=== PATIENT | female | born 1990 | race African-American/Black ===

== ENCOUNTER 2016-07-19 08:24 | Emergency (ER) | payer SELFPAY ==
[2016-07-19 08:29] VITALS: BP 142/94
--- NOTE | 2016-07-19 09:34 | ER Document Report ---
ED ENT - General Chief Complaint: Sore Throat Stated Complaint: THROAT PAIN Mode of Arrival: Ambulatory Information source: Patient TRAVEL OUTSIDE OF THE [place] IN LAST 30 DAYS: No - HPI Onset: Other - 3 days Onset/Duration: Gradual Quality of pain: Achy Associated symptoms: Congestion, Cough, Ear pain, Runny nose, Sinus drainage, Sore throat. denies: Chills, Difficulty swallowing, Drooling, Ear drainage, Ear trauma, Face swelling, Fever, Foreign body, Hearing loss, Neck pain, Nose bleed, Sinus pain Notes: Patient arrives with complaints of runny nose, congestion, sinus congestion, irritation in the throat, and cough for the last 3 days. No fever. Occasional body aches. She denies any nausea, vomiting, diarrhea. No abdominal pain. No difficulty breathing. No rash. No headache, blurred vision, numbness tingling or weakness. The patient denies any immunosuppression. She is not . She denies any other complaints. Her sister is being seen for the same exact complaints. - Related Data Allergies/Adverse Reactions: ciprofloxacin [From Cipro] Allergy (Verified 07/19/16 08:26) ciprofloxacin HCl [From Cipro] Allergy (Verified 07/19/16 08:26) metoclopramide HCl [From Reglan] Allergy (Verified 07/19/16 08:26) morphine [Morphine] Allergy (Verified 07/19/16 08:26) prochlorperazine edisylate [From Compazine] Allergy (Verified 07/19/16 08:26) prochlorperazine maleate [From Compazine] Allergy (Verified 07/19/16 08:26) Past Medical History - Social History Smoking Status: Never Smoker Chew tobacco use (# tins/day): No Frequency of alcohol use: None Drug Abuse: None Family History: CAD, CVA, DM, Hyperlipidemia, Hypertension, Other - dialysis Patient has suicidal ideation: No Patient has homicidal ideation: No Neurological Medical History: Reports: Hx Migraine Endocrine Medical History: Reports: Hx Diabetes Mellitus Type 2 - borderline Renal/ Medical History: Denies: Hx Peritoneal Dialysis Musculoskeltal Medical History: Reports Hx Arthritis Surgical Hx: Negative - Immunizations Immunizations up to date: No Hx Diphtheria, Pertussis, Tetanus Vaccination: No Review of Systems - Review of Systems -: Yes All other systems reviewed and negative Physical Exam - Vital signs Vitals: Temp Pulse Resp BP Pulse Ox 98.3 F 94 20 142/94 H 99 07/19/16 08:28 07/19/16 08:28 07/19/16 08:28 07/19/16 08:28 07/19/16 08:28 - General General appearance: Appears well, Alert - HEENT Head: Normocephalic, Atraumatic Eyes: Normal Conjunctiva: Normal Pupils: PERRL Ears: Normal External canal: Normal Tympanic membrane: Normal Sinus: Normal Nasal: Clear rhinorrhea Mouth/Lips: Normal Mucous membranes: Normal Pharynx: Normal. No: Erythema, Exudate, Peritonsillar abscess, Uvular edema Neck: Normal Notes: No neck stiffness, no meningeal S - Respiratory Respiratory status: No respiratory distress Breath sounds: Normal - Cardiovascular Rhythm: Regular Heart sounds: Normal auscultation Murmur: No - Back Back: Normal, Nontender - Extremities General upper extremity: Normal inspection, Nontender, Normal color, Normal ROM , Normal temperature General lower extremity: Normal inspection, Nontender, Normal color, Normal ROM , Normal temperature, Normal weight bearing. No: Tory's sign - Neurological Neuro grossly intact: Yes Cognition: Normal Orientation: AAOx4 [place] Coma Scale Eye Opening: Spontaneous Ying Coma Scale Verbal: Oriented Ying Coma Scale Motor: Obeys Commands Ying Coma Scale Total: 15 Speech: Normal Motor strength normal: LUE, RUE, LLE, RLE Sensory: Normal - Psychological Associated symptoms: Normal affect, Normal mood - Skin Skin Temperature: Warm Skin Moisture: Dry Skin Color: Normal Course - Re-evaluation Re-evalutation: 07/19/16 09:30 Patient's nontoxic appearing with stable vitals. The patient arrives with URI symptoms for the last 3 days. She is afebrile. Vitals are stable. The patient likely has an upper respiratory infection at this time. At this point the patient will be discharged home with Flonase, NSAIDs, Tessalon. Follow up with not better in one week, sooner for worsening symptoms or any further concerns. The patient's emergency department workup and current diagnosis were explained to the patient and or family. Follow-up instructions were provided. Medications if prescribed were discussed. Instructions for when to return to the emergency department including specific worrisome symptoms were discussed with the patient and/or family. The patient is noted to have elevated blood pressure during today's emergency department visit. The patient was informed of this finding. The patient was instructed that this may be related to pre-hypertension and requires further evaluation with a primary care provider. The patient has no hypertensive symptoms at this time. - Vital Signs Vital signs: Temp Pulse Resp BP Pulse Ox 98.3 F 96 20 142/94 H 99 07/19/16 08:30 07/19/16 08:30 07/19/16 08:30 07/19/16 08:30 07/19/16 08:30 Discharge - Discharge Clinical Impression: Upper respiratory infection Qualifiers: URI type: unspecified URI Qualified Code(s): J06.9 - Acute upper respiratory infection, unspecified Condition: Stable Disposition: HOME, SELF-CARE Instructions: Upper Respiratory Illness ([facility]) Additional Instructions: Take medications as prescribed. Follow-up with your doctor if not better in one week, sooner for worsening symptoms, difficulty breathing, or any further concerns. Your blood pressure was elevated during today's visit. Have this rechecked with your doctor. Prescriptions: Benzonatate [Tessalon [place]le 100 mg Capsule] 100 mg PO Q8HP PRN #20 cap PRN Reason: Diclofenac Sodium [Voltaren] 75 mg PO BID #20 tablet. Fluticasone Propionate [Flonase Nasal [place] 50 Mcg/[place] 16 gm] 2 sprays NASL Q12 #1 inhaler Forms: Elevated Blood Pressure, Return to Work
== END 2016-07-19 09:35 | disposition home or self-care (01) ==
LOC: ER 08:24
DX: J06.9 Acute upper respiratory infection, unspecified (principal); J02.9 Acute pharyngitis, unspecified; R09.81 Nasal congestion; R05 Cough; H92.09 Otalgia, unspecified ear; R09.89 Other specified symptoms and signs involving the circulatory and respiratory systems
CPT/HCPCS: 99282

== ENCOUNTER 2016-09-04 11:12 | Emergency (ER) | payer SELFPAY ==
[2016-09-04] MEDS ORDERED: ACETAMINOPHEN 325 MG TABLET PO ONE (11:45)
--- NOTE | 2016-09-04 11:48 | ER Document Report ---
HPI - HPI Patient complains to provider of: ankle pain Pain Level: 3 Context: 25-year-old female presents emergency department complaining of right ankle pain. Patient states that [place] when she tripped in a small hole and rolled her ankle to the outside. She states she has pain on the outside of her ankle on the top of her foot. States it has been difficulty bearing weight and walking on it. Otherwise she denies any issues with range of motion of her toes, no sensory dysfunction. denies Previous injury to this extremity no other medical problems - REPRODUCTIVE Reproductive: DENIES: : - DERM Skin Color: Normal Past Medical History - Social History Smoking Status: Never Smoker Family History: CAD, CVA, DM, Hyperlipidemia, Hypertension, Other - dialysis Patient has suicidal ideation: No Patient has homicidal ideation: No Neurological Medical History: Reports: Hx Migraine Endocrine Medical History: Reports: Hx Diabetes Mellitus Type 2 - borderline Renal/ Medical History: Denies: Hx Peritoneal Dialysis Musculoskeltal Medical History: Reports Hx Arthritis - Immunizations Immunizations up to date: No Hx Diphtheria, Pertussis, Tetanus Vaccination: No Vertical Provider Document - CONSTITUTIONAL Agree With Documented VS: Yes Exam Limitations: No Limitations General Appearance: WD/WN, No Apparent Distress - INFECTION CONTROL TRAVEL OUTSIDE OF THE [place] IN LAST 30 DAYS: No - RESPIRATORY O2 Sat by Pulse Oximetry: 100 - CARDIOVASCULAR Pulses: Normal: Dorsalis pedis Notes: Cap refill less than 2 seconds in all lower extremity digits - MUSCULOSKELETAL/EXTREMETIES Musculoskeletal/Extremeties: MAEW, Tender - Lateral aspect of the right ankle as well as the top of the foot. Positive metatarsal compression for pain, No Edema. negative: Eccymosis - NEURO Level of Consciousness: Awake, Alert, Appropriate Motor/Sensory: No Motor Deficit, No Sensory Deficit - DERM Integumentary: Warm, Dry, No Rash. negative: Laceration Course - Re-evaluation Re-evalutation: 09/04/16 13:31 Lateral malleolus avulsion fracture. Patient placed in the posterior long leg splint and crutches. Follow-up with ortho - Vital Signs Vital signs: Temp Pulse Resp BP Pulse Ox 98.0 F 93 16 123/81 100 09/04/16 11:38 09/04/16 11:38 09/04/16 11:38 09/04/16 11:38 09/04/16 11:38 - Diagnostic Test Radiology reviewed: Image reviewed, Reports reviewed Discharge - Discharge Clinical Impression: Avulsion fracture of ankle Condition: Good Disposition: HOME, SELF-CARE Instructions: Splint Precautions ([facility]), Use of Crutches ([facility]), Use of Over-The- Counter Ibuprofen ([facility]), Oral Narcotic Medication ([facility]), Ice & Elevation ([facility]) Additional Instructions: Please follow up with ortho in 3-5 days Prescriptions: Ibuprofen [Motrin 800 mg Tablet] 800 mg PO Q8H PRN #30 tab PRN Reason: Oxycodone HCl/Acetaminophen [Percocet 5-325 mg Tablet] 1 - 2 tab PO Q4H PRN #10 tablet PRN Reason: Forms: Special Work Note, Return to Work Referrals: FABIO LOVETT DO [ACTIVE STAFF] - Follow up in 3-5 days [facility] [NO LOCAL MD] - Follow up as needed
[2016-09-04 14:31] VITALS: BP 125/77
== END 2016-09-04 14:20 | disposition home or self-care (01) ==
LOC: ER 11:12
PROC: 2W3LX1Z Immobilization of Right Lower Extremity using Splint (ICD-10-PCS; principal; 2016-09-04)
DX: S82.891A Other fracture of right lower leg, initial encounter for closed fracture (principal); M25.571 Pain in right ankle and joints of right foot; X58.XXXA Exposure to other specified factors, initial encounter
CPT/HCPCS: 99283

== ENCOUNTER 2016-12-21 14:05 | Emergency (ER) | payer SELFPAY ==
--- NOTE | 2016-12-21 14:56 | ER Document Report ---
ED General - General Chief Complaint: Ankle Pain Stated Complaint: RIGHT ANKLE PAIN Time Seen by Provider: 12/21/16 14:44 TRAVEL OUTSIDE OF THE [place] IN LAST 30 DAYS: No - HPI Patient complains to provider of: Right ankle pain Notes: Patient coming in for right ankle pain ongoing for greater than a month. Patient states she was recently seen approximate 1 month ago and had an x-ray performed showing fracture of the ankle however never followed up with orthopedic and that she does not have insurance. Patient states continues to have pain on the ankle and on the dorsum of the foot. Patient denies any fevers chills nausea vomiting denies any other injuries. Patient currently is in no splinting apparatus - Related Data Allergies/Adverse Reactions: ciprofloxacin [From Cipro] Allergy (Verified 09/04/16 11:37) ciprofloxacin HCl [From Cipro] Allergy (Verified 09/04/16 11:37) metoclopramide HCl [From Reglan] Allergy (Verified 09/04/16 11:37) morphine [Morphine] Allergy (Verified 09/04/16 11:37) prochlorperazine edisylate [From Compazine] Allergy (Verified 09/04/16 11:37) prochlorperazine maleate [From Compazine] Allergy (Verified 09/04/16 11:37) Past Medical History - Social History Smoking Status: Unknown if Ever Smoked Family History: CAD, CVA, DM, Hyperlipidemia, Hypertension, Other - dialysis Neurological Medical History: Reports: Hx Migraine Endocrine Medical History: Reports: Hx Diabetes Mellitus Type 2 - borderline Renal/ Medical History: Denies: Hx Peritoneal Dialysis Musculoskeltal Medical History: Reports Hx Arthritis - Immunizations Immunizations up to date: No Hx Diphtheria, Pertussis, Tetanus Vaccination: No Review of Systems - Review of Systems Constitutional: No symptoms reported EENT: No symptoms reported Cardiovascular: No symptoms reported Respiratory: No symptoms reported Gastrointestinal: No symptoms reported Genitourinary: No symptoms reported Female Genitourinary: No symptoms reported Musculoskeletal: Other - Ankle pain Skin: No symptoms reported Hematologic/Lymphatic: No symptoms reported Neurological/Psychological: No symptoms reported Physical Exam - Vital signs Vitals: Temp Pulse Resp BP Pulse Ox 98.8 F 100 18 147/98 H 99 12/21/16 14:11 12/21/16 14:11 12/21/16 14:11 12/21/16 14:11 12/21/16 14:11 Interpretation: Normal - General General appearance: Appears well, Alert - HEENT Head: Normocephalic, Atraumatic Eyes: Normal Pupils: PERRL - Respiratory Respiratory status: No respiratory distress Chest status: Nontender Breath sounds: Normal Chest palpation: Normal - Cardiovascular Rhythm: Regular Heart sounds: Normal auscultation Murmur: No - Abdominal Inspection: Normal Distension: No distension Bowel sounds: Normal Tenderness: Nontender Organomegaly: No organomegaly - Back Back: Normal, Nontender - Extremities General upper extremity: Normal inspection, Nontender, Normal color, Normal ROM , Normal temperature General lower extremity: Normal inspection, Tender, Normal color, Normal ROM, Normal temperature, Normal weight bearing, Other - Right ankle examination shows tenderness to palpation of the dorsum of the foot lateral medial malleolus. - Neurological Neuro grossly intact: Yes Cognition: Normal Orientation: AAOx4 Ying Coma Scale Eye Opening: Spontaneous Ying Coma Scale Verbal: Oriented [place] Coma Scale Motor: Obeys Commands [place] Coma Scale Total: 15 Speech: Normal Motor strength normal: LUE, RUE, LLE, RLE Sensory: Normal - Psychological Associated symptoms: Normal affect, Normal mood - Skin Skin Temperature: Warm Skin Moisture: Dry Skin Color: Normal Course - Re-evaluation Re-evalutation: 12/21/16 22:28 Patient still has a avulsion fracture present discussed with our bilingual social worker team will try to find patient follow-up. Will discharge patient home with Anurag wrap. - Vital Signs Vital signs: Temp Pulse Resp BP Pulse Ox 98.7 F 62 16 125/77 96 12/21/16 16:18 12/21/16 16:18 12/21/16 16:18 12/21/16 16:18 12/21/16 16:18 Discharge - Discharge Clinical Impression: Avulsion fracture of lateral malleolus Qualifiers: Encounter type: initial encounter Fracture type: closed Laterality: right Qualified Code(s): S82.61XA - Displaced fracture of lateral malleolus of right fibula, initial encounter for closed fracture Condition: Good Disposition: HOME, SELF-CARE Instructions: Avulsion Fracture of the Ankle ([facility]) Additional Instructions: Your x-ray still shows an avulsion fracture. There is a piece of bone on the outside of your ankle that is still displaced and has not healed to the main part of the bone. This may continue for the rest of her life which can cause some chronic pain issues and chronic arthritis. This time I will suggest we place you in a Anurag wrap to support the ankle I will have our bilingual social worker contact you for possible follow-up. Take Tylenol Motrin for pain control return to the ER symptoms worsen. Prescriptions: Ibuprofen [Motrin 600 Mg Tablet] 600 mg PO TID #30 tablet Forms: Return to Work
--- NOTE | 2016-12-21 15:19 | RADIOLOGY REPORT (SQ) ---
EXAM DESCRIPTION: ANKLE RIGHT COMPLETE COMPLETED DATE/TIME: 12/21/2016 3:00 pm REASON FOR STUDY: hx of fx.. continued pain no fu with ortho for 1m COMPARISON: 04/22/2013 NUMBER OF VIEWS: Three views. TECHNIQUE: AP, lateral, and oblique radiographic images acquired of the right ankle. LIMITATIONS: None. FINDINGS: MINERALIZATION: Normal. BONES: There is a small fragment of bone adjacent to tip of the lateral malleolus. JOINTS: No effusions. SOFT TISSUES: Mild soft tissue swelling. OTHER: No other significant finding. IMPRESSION: Cannot exclude a minimal avulsion involving tip of the lateral malleolus. Correlate cli nically. TECHNICAL DOCUMENTATION: JOB ID: [id number] [employer]- All Rights Reserved
[2016-12-21 17:40] VITALS: BP 125/77
== END 2016-12-21 16:18 | disposition home or self-care (01) ==
LOC: ER 14:05
DX: S82.61XA Displaced fracture of lateral malleolus of right fibula, initial encounter for closed fracture (principal); M25.571 Pain in right ankle and joints of right foot; X58.XXXA Exposure to other specified factors, initial encounter
CPT/HCPCS: 99283

== ENCOUNTER 2017-03-01 13:29 | Emergency (ER) | payer SELFPAY ==
[2017-03-01 14:33] LABS: ABSOLUTE BASOPHILS # (AUTO) 0.1 10^3/uL (0.0-0.2); ABSOLUTE EOSINOPHILS # (AUTO) 0.1 10^3/uL (0.0-0.6); ABSOLUTE LYMPHOCYTES (AUTO) 3.5 10^3/uL (0.5-4.7); ABSOLUTE MONOCYTES (AUTO) 0.7 10^3/uL (0.1-1.4); ABSOLUTE NEUT (AUTO) 8.2 10^3/uL (1.7-8.2); BASOPHILS % (AUTO) 0.4 % (0-2); HEMATOCRIT 37.7 % (36.0-47.0); HEMOGLOBIN 12.2 g/dL (12.0-15.5); HGB HCT DIFFERENCE -1.1; MEAN CORPUSCULAR HEMOGLOBIN 27.1 pg (27.0-33.4); MEAN CORPUSCULAR HGB CONC 32.4 g/dL (32.0-36.0); MEAN CORPUSCULAR VOLUME 84 fl (80-97); MONOCYTES % (AUTO) 5.6 % (3-13); RED CELL DISTRIBUTION WIDTH 14.7 % (11.5-14.0); WHITE BLOOD COUNT 12.7 10^3/uL (4.0-10.5)
[2017-03-01 14:59] LABS: ALANINE AMINOTRANSFERASE 24 U/L (9-52); ALKALINE PHOSPHATASE 62 U/L (38-126); ANION GAP 11 (5-19); ASPARTATE AMINO TRANSFERASE 11 U/L (14-36); BILIRUBIN,DIRECT 0.3 mg/dL (0.0-0.4); BILIRUBIN,TOTAL 0.4 mg/dL (0.2-1.3); BLOOD UREA NITROGEN 8 mg/dL (7-20); CALCIUM 9.9 mg/dL (8.4-10.2); CARBON DIOXIDE 25 mmol/L (22-30); CHLORIDE 104 mmol/L (98-107); CREATININE RESULT 0.67 mg/dL (0.52-1.25); GLUCOSE 84 mg/dL (75-110); SODIUM 140.3 mmol/L (137-145)
[2017-03-01 15:11] LABS: APPEARANCE,URINE SLIGHTLY-CLOUDY; BILIRUBIN,URINE NEGATIVE (NEGATIVE); GLUCOSE, URINE NEGATIVE (NEGATIVE); KETONES,URINE NEGATIVE (NEGATIVE); LEUKOCYTE ESTERASE,URINE TRACE (NEGATIVE); NITRITE,URINE NEGATIVE (NEGATIVE); PROTEIN,URINE 30 mg/dL (NEGATIVE); URINE SPECIFIC GRAVITY 1.028; UROBILINOGEN,URINE NEGATIVE mg/dL (<2.0)
--- NOTE | 2017-03-01 17:44 | RADIOLOGY REPORT (SQ) ---
EXAM DESCRIPTION: U/S OB TRANSVAGINAL W/O DOP COMPLETED DATE/TIME: 03/01/2017 5:31 pm REASON FOR STUDY: preg/pain COMPARISON: None. TECHNIQUE: Transvaginal static and realtime grayscale images acquired of the pelvis. Additional edith cted spectral and color Doppler images recorded. All images stored on PACs. bHCG: Not available LIMITATIONS: None. FINDINGS: FETUS: Living intrauterine . EGA: 6 weeks 3 days ANDRES: 10/22/2017 FHR: 127 beats per minute. SUBCHORIONIC BLEED: No SIZE OF BLEED: Not applicable. UTERUS: No masses. No anomalies. CERVICAL LENGTH: 1.9 cm Closed. RIGHT ADNEXA: Right ovary was not visualized. No adnexal free fluid. No adnexal masses. LEFT ADNEXA: Normal ovary with normal vascular flow. No adnexal free fluid. No adnexal masses. FREE FLUID: None. OTHER: No other significant finding. IMPRESSION: LIVING INTRAUTERINE . EGA 6 weeks 3 days Trimester of : First - 0 to 13 weeks. TECHNICAL DOCUMENTATION: JOB ID: [id number] [email or web address]- All Rights Reserved
--- NOTE | 2017-03-01 18:15 | ER Document Report ---
ED General - General Chief Complaint: Nausea/Vomiting/Diarrhea Stated Complaint: STOMACH PAIN Time Seen by Provider: 03/01/17 13:56 Mode of Arrival: Ambulatory Information source: Patient Notes: Patient states she has had bilateral lower quadrant abdominal pain radiating to her back. It is moderate. And constant. Nothing makes it better or worse. Also states she has been nauseous and unable to hold down food or liquids. States that she is concerned she may be . The pain is crampy in nature TRAVEL OUTSIDE OF THE [place] IN LAST 30 DAYS: No - Related Data Allergies/Adverse Reactions: ciprofloxacin [From Cipro] Allergy (Verified 03/01/17 13:31) ciprofloxacin HCl [From Cipro] Allergy (Verified 03/01/17 13:31) metoclopramide HCl [From Reglan] Allergy (Verified 03/01/17 13:31) morphine [Morphine] Allergy (Verified 03/01/17 13:31) prochlorperazine edisylate [From Compazine] Allergy (Verified 03/01/17 13:31) prochlorperazine maleate [From Compazine] Allergy (Verified 03/01/17 13:31) Home Medications: Current Home Medications No Home Medications 03/01/17 [History] Past Medical History - General Information source: Patient - Social History Smoking Status: Never Smoker Chew tobacco use (# tins/day): No Frequency of alcohol use: None Drug Abuse: None Family History: CAD, CVA, DM, Hyperlipidemia, Hypertension, Other - dialysis Patient has suicidal ideation: No Patient has homicidal ideation: No Neurological Medical History: Reports: Hx Migraine Endocrine Medical History: Reports: Hx Diabetes Mellitus Type 2 - borderline Renal/ Medical History: Denies: Hx Peritoneal Dialysis Musculoskeltal Medical History: Reports Hx Arthritis - Immunizations Immunizations up to date: No Hx Diphtheria, Pertussis, Tetanus Vaccination: No Review of Systems - Review of Systems Constitutional: denies: Chills, Fever Cardiovascular: denies: Chest pain, Palpitations Respiratory: denies: Cough, Short of breath -: Yes All other systems reviewed and negative Physical Exam - Vital signs Vitals: Temp Pulse Resp BP Pulse Ox 98.5 F 92 16 137/79 H 98 03/01/17 13:31 03/01/17 13:31 03/01/17 13:31 03/01/17 13:31 03/01/17 13:31 Interpretation: Hypertensive - General General appearance: Appears well, Alert - HEENT Head: Normocephalic, Atraumatic Eyes: Normal Pupils: PERRL - Respiratory Respiratory status: No respiratory distress Chest status: Nontender Breath sounds: Normal Chest palpation: Normal - Cardiovascular Rhythm: Regular Heart sounds: Normal auscultation Murmur: No - Abdominal Inspection: Normal Distension: No distension Bowel sounds: Normal Tenderness: Nontender Organomegaly: No organomegaly - Back Back: Normal, Nontender - Extremities General upper extremity: Normal inspection, Nontender, Normal color, Normal ROM , Normal temperature General lower extremity: Normal inspection, Nontender, Normal color, Normal ROM , Normal temperature, Normal weight bearing. No: Tory's sign - Neurological Neuro grossly intact: Yes Cognition: Normal Orientation: AAOx4 [place] Coma Scale Eye Opening: Spontaneous [place] Coma Scale Verbal: Oriented [place] Coma Scale Motor: Obeys Commands Ying Coma Scale Total: 15 Speech: Normal Motor strength normal: LUE, RUE, LLE, RLE Sensory: Normal - Psychological Associated symptoms: Normal affect, Normal mood - Skin Skin Temperature: Warm Skin Moisture: Dry Skin Color: Normal Course - Vital Signs Vital signs: Temp Pulse Resp BP Pulse Ox 98.5 F 92 16 137/79 H 98 03/01/17 13:31 03/01/17 13:31 03/01/17 13:31 03/01/17 13:31 03/01/17 13:31 - Laboratory Result Diagrams: 03/01/17 14:15 03/01/17 14:15 Laboratory results interpreted by me: 03/01/17 03/01/17 03/01/17 14:15 14:15 14:15 WBC 12.7 H RDW 14.7 H AST 11 L Beta HCG, Quant Urine Protein 30 H Ur Leukocyte Esterase TRACE H Urine HCG, Qual POSITIVE H 03/01/17 14:15 WBC RDW AST Beta HCG, Quant 46366.00 H Urine Protein Ur Leukocyte Esterase Urine HCG, Qual - Diagnostic Test Radiology reviewed: Image reviewed, Reports reviewed - Patient's ultrasound shows a live IUP with a normal heart rate. Discharge - Discharge Clinical Impression: Abdominal pain affecting , Hyperemesis gravidarum Condition: Stable Disposition: HOME, SELF-CARE Instructions: Abdominal Pain ([facility]), Vomiting ([facility]) Additional Instructions: [facility] as [facility] to arrange follow-up Forms: Elevated Blood Pressure, Return to Work Referrals: PAULIE GARZA MD [ACTIVE STAFF] - Follow up in 3-5 days
[2017-03-01 18:34] VITALS: BP 127/67
== END 2017-03-01 18:30 | disposition home or self-care (01) ==
LOC: ER 13:29
DX: O21.0 Mild hyperemesis gravidarum (principal); R10.9 Unspecified abdominal pain; R11.2 Nausea with vomiting, unspecified; R19.7 Diarrhea, unspecified; M54.9 Dorsalgia, unspecified; Z3A.01 Less than 8 weeks gestation of pregnancy
CPT/HCPCS: 36415; 76817; 80053; 81001; 81025; 84702; 85025; 99284

== ENCOUNTER → 2017-03-29 | Outpatient (CLI) | payer SELFPAY ==
--- NOTE | 2017-03-29 16:37 | RADIOLOGY REPORT (SQ) ---
EXAM DESCRIPTION: U/S [id number] TRNABD 1GES W/ODOP COMPLETED DATE/TIME: 03/29/2017 4:17 pm REASON FOR STUDY: ENCOUNTER FOR SUPERVISON OF OTHER NORMAL , FIRST TRIMESTER Z34.01 ENCNTR FOR SUPRVSN OF NORMAL FIRST PREG, FIRST TRIMES COMPARISON: 03/01/2017 TECHNIQUE: Transabdominal static and realtime grayscale images acquired of the pelvis. Additional se lected spectral and color Doppler images recorded. All images stored on PACs. bHCG: Not applicable. LIMITATIONS: None. FINDINGS: FETUS: Living intrauterine . EGA: 10 weeks 4 days ANDRES: 10/21/2017 FHR: 165 beats per minute. SUBCHORIONIC BLEED: No SIZE OF BLEED: Not applicable. UTERUS: No masses. No anomalies. CERVICAL LENGTH: 1.9 cm Closed. RIGHT ADNEXA: Ovary not seen. Solid masslike density measuring 6.6 x 5.5 x 5.6 cm. On 1 image, it a ppears that this may represent pedunculated fibroid. No adnexal free fluid. No adnexal masses. LEFT ADNEXA: Ovary not seen. No adnexal free fluid. No adnexal masses. FREE FLUID: None. OTHER: No other significant finding. IMPRESSION: 1. LIVING INTRAUTERINE . EGA 10 weeks 4 days. 2. Possible pedunculated uterine fibroid in the right adnexa. Trimester of : First - 0 to 13 weeks. TECHNICAL DOCUMENTATION: JOB ID: [id number] [email or web address]- All Rights Reserved
== END ==
LOC: RAD 15:13
PROVIDERS: ATTEND Nurse Practitioner Women's Health
DX: Z34.01 Encounter for supervision of normal first pregnancy, first trimester (principal)
CPT/HCPCS: 76801

== ENCOUNTER 2017-05-29 16:54 | Emergency (ER) | payer MEDICAID ==
[2017-05-29 19:13] VITALS: BP 126/64
[2017-05-29] MEDS ORDERED: ACETAMINOPHEN 325 MG TABLET PO ONE (19:13)
--- NOTE | 2017-05-29 19:13 | ER Document Report ---
HPI - HPI Pain Level: 4 Context: Patient is a 19 week 26-year-old female who presents emergency department complaining of headache. Patient states that she has had a headache approximately every day for the past week and a half. She states that she has been taking Tylenol which has not made any significant improvement in her headache. She states it is a pressure behind her left eye. She admits she recently stopped drinking Mountain Dew 2 weeks ago. She states that she was previously drinking approximately 5 cans or bottles of Mountain Dew a day and stopped abruptly. She states that as soon as she quit drinking caffeine that her headaches started. She also admits to some tension in her left neck that improves with massage. Otherwise she denies any focal neurological deficits, weakness, altered mental status, confusion, dizziness, vomiting. States that she does have a history of headaches that resolve after dose of Motrin but she has not been able to take that given her status. - NEURO Neurology: REPORTS: Headache - X 2 weeks - REPRODUCTIVE Reproductive: DENIES: : Past Medical History - Social History Smoking Status: Never Smoker Family History: CAD, CVA, DM, Hyperlipidemia, Hypertension, Other - dialysis Patient has suicidal ideation: No Patient has homicidal ideation: No Neurological Medical History: Reports: Hx Migraine Endocrine Medical History: Reports: Hx Diabetes Mellitus Type 2 - borderline Renal/ Medical History: Denies: Hx Peritoneal Dialysis Musculoskeltal Medical History: Reports Hx Arthritis - Immunizations Immunizations up to date: No Hx Diphtheria, Pertussis, Tetanus Vaccination: No Vertical Provider Document - CONSTITUTIONAL Agree With Documented VS: Yes Notes: PHYSICAL EXAM GENERAL: Alert, interacts well. HEAD: Normocephalic, atraumatic. EYES: Pupils equal, round, and reactive to light. Extraocular movements intact. ENT: Oral mucosa moist, tongue midline. NECK: Full range of motion. Supple. Trachea midline. LUNGS: Clear to auscultation bilaterally, no wheezes, rales, or rhonchi. No respiratory distress. HEART: Regular rate and rhythm. No murmurs, gallops, or rubs. ABDOMEN: Soft, nondistended, nontender. No guarding, rebound, or rigidity.. Bowel sounds present in all 4 quadrants. EXTREMITIES: Tenderness of the left trapezius to palpation. Moves all 4 extremities spontaneously. No edema, radial and dorsalis pedis pulses 2/4 bilaterally. No cyanosis. NEUROLOGICAL: Alert and oriented x4. Face symmetric. Tongue protrudes midline. Extraocular motions intact. Pupils are 2 mm and equally reactive. Normal speech, normal gait. 5 out of 5 strength in both the distal and proximal upper and lower extremities bilaterally. Sensation is grossly intact throughout. PSYCH: Normal affect, normal mood. SKIN: Warm, dry, normal turgor. No rashes or lesions noted. - INFECTION CONTROL TRAVEL OUTSIDE OF THE [place] IN LAST 30 DAYS: No - RESPIRATORY O2 Sat by Pulse Oximetry: 100 Course - Re-evaluation Re-evalutation: 05/29/17 19:08 Patient is a 26-year-old female who is hemodynamically stable, no acute distress and afebrile. Presentation is consistent with tension type headache with underlying caffeine withdrawal. Patient does not have any focal neurologic deficits, nuchal rigidity, vital signs are within normal limits no papilledema. Patient is otherwise no acute distress and hemodynamically stable. Low index for suspicion of acute subarachnoid hemorrhage, meningitis or mass. Low suspicion for acute life-threatening etiology with intact neuro exam therefore no additional imaging or laboratory testing is indicated. Will discharge patient home with strict follow-up with PCP for blood pressure check with her scheduled follow-up appointment on the . - Vital Signs Vital signs: Temp Pulse Resp BP Pulse Ox 99.1 F 96 16 129/77 H 100 05/29/17 17:53 05/29/17 17:53 05/29/17 17:53 05/29/17 17:53 05/29/17 17:53 Discharge - Discharge Clinical Impression: Headache Qualifiers: Headache type: other headache syndrome Qualified Code(s): G44.89 - Other headache syndrome Condition: Good Disposition: HOME, SELF-CARE Additional Instructions: Your headache today is consistent with the fact that you recently stopped drinking caffeine. You also have signs of a tension headache with the irritation of your left shoulder. PLease start taking 400mg of magnesium and follow up with the health department on . HEADACHE: The physician does not feel that the headache you are experiencing has a serious underlying cause. Most headaches are due to emotional stress, with resultant muscle tension (tension headache). Occasionally, headaches are secondary to changes in the blood vessels of the scalp (vascular headache and migraine headache). Sometimes, a headache is the first symptom of another developing illness, such as a viral infection. You have no evidence of stroke, bleeding, meningitis, or other serious cause of your headache. The treatment of headaches varies with the severity and cause of the pain. Not all headaches need pain shots. In fact, there is evidence that using narcotics for headaches may make them worse in the long run. The physician will determine the therapy that's in your best interest. If you develop a fever, if the headache is different from any you've previously experienced, or if the headache progressively worsens, then call your physician at once or go to the emergency room. FOLLOW-UP CARE: If you have been referred to a physician for follow-up care, call the physician s office for an appointment as you were instructed or within the next two days. If you experience worsening or a significant change in your symptoms, notify the physician immediately or return to the Emergency Department at any time for re-evaluation. [facility] - Follow up in 3-5 days
== END 2017-05-29 19:34 | disposition home or self-care (01) ==
LOC: ER 16:54
DX: G44.89 Other headache syndrome (principal); M54.2 Cervicalgia
CPT/HCPCS: 99283; J3490

== ENCOUNTER 2017-09-26 14:29 | Outpatient (CLI) | payer MEDICAID | END 2017-09-26 15:21 | disposition home or self-care (01) | LOC: LC 14:29 | PROVIDERS: ATTEND Obstetrics & Gynecology | PROC: 4A1HXCZ Monitoring of Products of Conception, Cardiac Rate, External Approach (ICD-10-PCS; principal; 2017-09-26) | DX: Z34.93 Encounter for supervision of normal pregnancy, unspecified, third trimester (principal) | CPT/HCPCS: 59025 ==

== ENCOUNTER 2017-10-05 20:38 | Inpatient (IN) | payer MEDICAID ==
[2017-10-05] MEDS ORDERED: RINGERS SOLUTION,LACTATED 300 ML IV ONE (21:13)
[2017-10-05] MEDS ORDERED: DINOPROSTONE 10 MG VAGINAL INSERT.SR PV PRN (21:13)
[2017-10-05] MEDS ORDERED: RINGERS SOLUTION,LACTATED 1,000 ML IV PRN (21:13)
[2017-10-05] MEDS ORDERED: DINOPROSTONE 10 MG VAGINAL INSERT.SR ONE (21:17)
[2017-10-05 21:39] LABS: ABSOLUTE EOSINOPHILS # (AUTO) 0.1 10^3/uL (0.0-0.6); ABSOLUTE LYMPHOCYTES (AUTO) 3.1 10^3/uL (0.5-4.7); ABSOLUTE MONOCYTES (AUTO) 0.6 10^3/uL (0.1-1.4); BASOPHILS % (AUTO) 0.3 % (0-2); EOSINOPHILS % (AUTO) 0.7 % (0-6); HEMATOCRIT 34.6 % (36.0-47.0); HEMOGLOBIN 11.1 g/dL (12.0-15.5); LYMPHOCYTES % (AUTO) 26.4 % (13-45); MEAN CORPUSCULAR HEMOGLOBIN 27.6 pg (27.0-33.4); MEAN CORPUSCULAR HGB CONC 32.1 g/dL (32.0-36.0); MEAN CORPUSCULAR VOLUME 86 fl (80-97); MONOCYTES % (AUTO) 5.3 % (3-13); PLATELET COUNT 226 10^3/uL (150-450); RED BLOOD COUNT 4.02 10^6/uL (3.72-5.28); SEGMENTED NEUTROPHILS % (AUTO) 67.3 % (42-78); TOTAL CELLS COUNTED % (AUTO) 100 %; WHITE BLOOD COUNT 11.8 10^3/uL (4.0-10.5)
[2017-10-05 21:41] LABS: APPEARANCE,URINE CLOUDY; BILIRUBIN,URINE NEGATIVE (NEGATIVE); COLOR,URINE YELLOW; GLUCOSE, URINE 50 mg/dL (NEGATIVE); KETONES,URINE NEGATIVE (NEGATIVE); LEUKOCYTE ESTERASE,URINE LARGE (NEGATIVE); NITRITE,URINE NEGATIVE (NEGATIVE); PROTEIN,URINE 30 mg/dL (NEGATIVE); URINE SPECIFIC GRAVITY 1.028
[2017-10-05 21:58] LABS: URINE AMPHETAMINES SCREEN NEGATIVE; URINE BARBITURATES SCREEN NEGATIVE; URINE BENZODIAZEPINES SCREEN NEGATIVE; URINE COCAINE SCREEN NEGATIVE; URINE MARIJUANA (THC) SCREEN NEGATIVE; URINE METHADONE SCREEN NEGATIVE; URINE PHENCYCLIDINE SCREEN NEGATIVE
[2017-10-06] MEDS ORDERED: NALBUPHINE HCL INJ 10 MG/1 ML AMPULE INJ ONE (03:58)
[2017-10-06] MEDS ORDERED: NALBUPHINE HCL INJ 10 MG/1 ML AMPULE ONE (04:01)
[2017-10-06] MEDS ORDERED: PENICILLIN G-K 5 MILLION UNIT VIAL ONE ×2 (04:40→11:32)
[2017-10-06] MEDS ORDERED: DEXTROSE 5%-LACTATED RINGERS 300 ML IV PRN (09:30)
--- NOTE | 2017-10-06 10:39 | Non Stress Test Report ---
Non Stress Test Datetime Report Generated by CPN: 10/06/2017 10:39 DEMOGRAPHIC EGA NST: 36.2 INDICATION Indication for Study: Diabetes Mellitus; Ordered by Provider MONITORING Monitor Explained: Monitor Explained; Test Explained; Patient Verbalized Understanding Time on Monitor: 09/26/2017 14:55 Time off Monitor: 09/26/2017 15:21 NST Duration: 26 NST INTERVENTIONS NST Interventions: PO Hydration; Reposition Patient Physician Notified NST: H. Leo CNM BABY A: [id number] BABY A Movement : Present Contraction Frequency : irreg FHR Baseline : 145 Accelerations : 15X15 Decelerations : None Variability : Moderate 6-25bpm NST Review: Meets Criteria for Reactive NST NST Review and Verified By : Elvie Camp RNC NST Results: Reactive NST REPORT Report Trigger: Send Report
--- NOTE | 2017-10-06 11:12 | RADIOLOGY REPORT (SQ) ---
EXAM DESCRIPTION: U/S PROFILE W/O STRESS COMPLETED DATE/TIME: 10/06/2017 10:54 am REASON FOR STUDY: please add weight/BPP for 1 x decel of fht COMPARISON: 03/29/2017 TECHNIQUE: Limited gould-scale realtime and static images of the fetus to measure specified parameter s. LIMITATIONS: None. FINDINGS: HEART RATE: 152 beats per minute. CHIRAG: Adequate cm. BREATHING MOVEMENT: 2 points. MOVEMENT: 2 points. POSTURE AND TONE: 0 points. QUALITATIVE CHIRAG: 2 points. OTHER: Estimated body weight 3876 +/-574 g. 93rd percentile. IMPRESSION: BIOPHYSICAL PROFILE: 09/22. Trimester of : Third - 28 weeks to delivery COMMENT: BREATHING MOVEMENTS: 2 POINTS: PRESENT 0 POINTS: ABSENT MOTION: 2 POINTS: PRESENT 0 POINTS: ABSENT TONE: 2 POINTS: PRESENT 0 POINTS: ABSENT AMNIOTIC FLUID VOLUME: 2 POINTS: LARGEST POCKET GREATER THAN 2 CM DEPTH. 0 POINTS: NO POCKET OF 2 CM. TECHNICAL DOCUMENTATION: JOB ID: [id number] [employer]- All Rights Reserved Reading location - IP/workstation name: [email or web address]
[2017-10-06] MEDS ORDERED: OXYTOCIN/NORMAL SALINE 20 UNIT/1,000 ML RTUINJ ONE ×2 (11:32→15:28)
[2017-10-06] MEDS ORDERED: MISOPROSTOL 0.2 MG TABLET ONE (12:17)
[2017-10-06] MEDS ORDERED: LIDOCAINE 1% INJ-PF (10 MG/ML) 30 ML SDV ONE (12:18)
[2017-10-06] MEDS ORDERED: EPHEDRINE SULFATE INJ 50 MG/1 ML AMPULE ONE ×2 (12:18→14:00)
[2017-10-06] MEDS ORDERED: FENTANYL/BUPIVACAINE/NS/PF 300 MCG/150 ML RTUINJ EPI ONE (12:18)
[2017-10-06] MEDS ORDERED: BUPIVACAINE HCL 0.25 % INJ/PF (2.5 MG/1 ML) 30 ML VIAL ONE (12:19)
[2017-10-06] MEDS ORDERED: LIDOCAINE 1.5%/EPINEPHRINE INJ-PF 30 ML SDV ONE (12:25)
[2017-10-06] MEDS ORDERED: FENTANYL CITRATE INJ/PF 100 MCG/2 ML AMPUL ONE ×3 (12:32→14:00)
[2017-10-06] MEDS ORDERED: CEFAZOLIN 1 GM/D5W RTU 2 GM/100 ML RTUPB IV ONE (13:47)
[2017-10-06] MEDS ORDERED: CITRIC ACID/SODIUM CITRATE ORAL SOLN 15 ML UDCUP ONE (13:47)
[2017-10-06] MEDS ORDERED: LIDOCAINE 2% INJ-PF (20 MG/ML) 10 ML AMPUL ONE (13:50)
[2017-10-06] MEDS ORDERED: OXYTOCIN 10 UNIT/ML VIAL ONE (13:59)
[2017-10-06] MEDS ORDERED: MIDAZOLAM 2 MG/2 ML INJ ONE (14:00)
[2017-10-06] MEDS ORDERED: PROPOFOL INJ 200 MG/20 ML VIAL IV ONE (14:00)
--- NOTE | 2017-10-06 15:51 | Admission Physical ---
Datetime Report Generated by CPN: 10/06/2017 15:51 CURRENT ADMISSION Chief Complaint: Scheduled Induction of Labor Indication for Induction: Maternal Diabetes Admit Impression : Term, Intrauterine Admit Plan: Admit to Unit; Initiate Labor Induction Protocol ALLERGIES Medication Allergies: Yes Medication Allergies: prochlorperazine edisylate/feels funny (10/06/2017); prochlorperazine maleate/KS (10/06/2017); metoclopramide HCl/KS (10/06/2017); morphine/KS (10/06/2017); ciprofloxacin/KS (10/06/2017) OBSTETRICAL HISTORY EDC: 10/22/2017 00:00 : 1 Para: 0 Term: 0 : 0 SAB: 0 IAB: 0 Ectopic: 0 Livin Cesareans: 0 VBACs: 0 Multiple Births: 0 Gestational Diabetes: Yes Rh Sensitization: No Incompetent Cervix: No EMMIE: No Infertility: No ART Treatment: No Uterine Anomaly: No IUGR: No Hx Previous C/S: No Macrosomia: Yes Hx Loss/Stillborn: No PIH: No Hx : No Placenta Previa/Abruption: No Depression/PP Depression: No PTL/PROM: No Post Hemorrhage: No Current Procedures: Ultrasound; NST Obstetrical History Comments: present-GDM diet controlled SEE RECORDS Alcohol: No Marijuana : No Cocaine: No Other Illicit Drugs: No Cigarettes: Never Smoker. 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 Surgery: No Heart Disease: No Hosp/Surgery: No Autoimmune Disorder: No Anesthetic Complications: No Kidney Disease: No Abnormal Pap Smear: No Neuro/Epilepsy: No Psychiatric Disorders: No Other Medical Diseases: No Hepatitis/Liver Disease: No Significant Family History: No Varicosities/Phlebitis: No Trauma/Violence : No Thyroid Dysfunction: No INFECTIOUS HISTORY Gonorrhea: No Genital Herpes: No Chlamydia: No Tuberculosis: No Syphilis: No Hepatitis: No HIV/AIDS Exposure: No Rash or Viral Illness: No HPV: No PHYSICAL EXAM General: Normal HEENT: Normal Neurologic: Normal Thyroid: Normal Heart: Normal Lungs: Normal Breast: Normal Back: Normal Abdomen: Normal Genitourinary Exam: Normal Extremities: Normal DTRs: Normal Pelvic Type: Adequate Vital Signs: Reviewed; Within Normal Limits VAGINAL EXAM Dilatation: 2 Effacement: 75 Station: -2 MEMBRANES Pooling: Negative Membranes: Intact FETUS A EGA: 37.5 Monitoring: External US FHR- Baseline: 120 Variability: Moderate 6-25bpm Accelerations: 15X15 Decelerations: Variable FHR Category: Category II Estimated Weight (gm): 4375 Presentation: Vertex Admit Comment: admitted for induction based on MFM recommendations due to noncompliant A1DM. EFW was >99th% per MFM reports. PLANS FOR LABOR AND DELIVERY Labor and Delivery: Plan Pain Management: Medications; Epidural Other Pain Management Plans: uncertain Feeding Preference: Both Circumcision: N/A INFORMED CONSENT Signature: with User ID: [email or web address]
[2017-10-06] MEDS ORDERED: DIPH/PERTUSS(ACELL)/TETANUS VAC/PF 0.5 ML SYR (>=10YO) IM PRN (15:53)
[2017-10-06] MEDS ORDERED: MEASLES,MUMPS&RUBELLA VACC/PF 0.5 ML VIAL SUBCUT PRN (15:53)
[2017-10-06] MEDS ORDERED: ACETAMINOPHEN 1,000 MG/100 ML RTUPB IV PRN (15:53)
[2017-10-06] MEDS ORDERED: SIMETHICONE 80 MG TAB.CHEW PO PRN (15:53)
[2017-10-06] MEDS ORDERED: PROMETHAZINE HCL INJ 25 MG/1 ML VIAL IV PRN (15:53)
[2017-10-06] MEDS ORDERED: OXYCODONE-ACETAMINOPHEN 5-325 MG TABLET PO PRN (15:53)
[2017-10-06] MEDS ORDERED: ACETAMINOPHEN 325 MG TABLET PO PRN (15:53)
[2017-10-06] MEDS ORDERED: OXYTOCIN/NORMAL SALINE 20 UNIT/1,000 ML RTUINJ IV PRN (15:53)
[2017-10-06] MEDS ORDERED: MORPHINE SULFATE 10 MG/ML INJ IV PRN (15:53)
[2017-10-06] MEDS ORDERED: KETOROLAC TROMETHAMINE INJ/PF 30 MG/1 ML SDV ONE (16:20)
[2017-10-06] MEDS ORDERED: ACETAMINOPHEN 1,000 MG/100 ML RTUPB IV ONE (16:20)
[2017-10-06] MEDS: OXYCODONE-ACETAMINOPHEN 5-325 MG TABLET PO PRN ×2 (18:55→23:08)
[2017-10-07] MEDS: DOCUSATE SODIUM 100 MG CAPSULE PO SCH ×3 (00:12→17:05)
[2017-10-07] MEDS: KETOROLAC TROMETHAMINE INJ/PF 30 MG/1 ML SDV IV SCH ×2 (02:03→09:19)
[2017-10-07] MEDS: OXYCODONE-ACETAMINOPHEN 5-325 MG TABLET PO PRN ×4 (06:18→23:36)
[2017-10-07 08:01] LABS: HEMATOCRIT 31.5 % (36.0-47.0); HEMOGLOBIN 10.2 g/dL (12.0-15.5); MEAN CORPUSCULAR HEMOGLOBIN 27.8 pg (27.0-33.4); MEAN CORPUSCULAR HGB CONC 32.5 g/dL (32.0-36.0); MEAN CORPUSCULAR VOLUME 86 fl (80-97); PLATELET COUNT 206 10^3/uL (150-450); RED BLOOD COUNT 3.68 10^6/uL (3.72-5.28); RED CELL DISTRIBUTION WIDTH 14.8 % (11.5-14.0); WHITE BLOOD COUNT 13.2 10^3/uL (4.0-10.5)
[2017-10-07] MEDS: PRENATAL VITAMIN W DHA CAPSULE PO SCH (09:19)
--- NOTE | 2017-10-07 09:58 | PDOC PROGRESS REPORT ---
Subjective-OB Progress Note for:: 10/07/17 Physical Exam (OB) Vital Signs: Temp Pulse Resp BP Pulse Ox 98.8 F 80 18 111/56 L 97 10/07/17 04:38 10/07/17 04:38 10/07/17 04:38 10/07/17 04:38 10/07/17 04:38 Intake & Output 10/06/17 10/07/17 10/08/17 06:59 06:59 06:59 Intake Total 2800 Output Total 2600 Balance 200 Weight 132.6 kg - PIH/Pre-Eclampsia DTR's: 2 + Clonus: Negative Headache: Absent Epigastric Pain: No Visual Changes: No - Dressing Removed: No Incision: Dressing - Lochia Lochia Amount: Small 10-25 ml Lochia Color: Rubra/Red - Abdomen Description: Tender, Soft, Round Hernia Present: No Bowel Sounds: Normoactive Flatus Presence: Present Stool: No Fundal Description: Firm, Midline Fundal Height: u/u - u/2 Objective-Diagnostic Laboratory: 10/07/17 07:35 10/07/17 07:35 WBC 13.2 H RBC 3.68 L Hgb 10.2 L Hct 31.5 L MCV 86 MCH 27.8 MCHC 32.5 RDW 14.8 H Plt Count 206
[2017-10-07] MEDS: IBUPROFEN 800 MG TABLET PO SCH ×3 (11:33→23:35)
[2017-10-07] MEDS ORDERED: IBUPROFEN 800 MG TABLET PO SCH (18:00)
[2017-10-08] MEDS: IBUPROFEN 800 MG TABLET PO SCH (06:01)
[2017-10-08] MEDS: OXYCODONE-ACETAMINOPHEN 5-325 MG TABLET PO PRN ×2 (06:02→10:27)
[2017-10-08 07:30] VITALS: BP 117/55
[2017-10-08] MEDS: DOCUSATE SODIUM 100 MG CAPSULE PO SCH (09:04)
[2017-10-08] MEDS: PRENATAL VITAMIN W DHA CAPSULE PO SCH (09:05)
--- NOTE | 2017-10-08 09:52 | PDOC PROGRESS REPORT ---
Subjective-OB Progress Note for:: 10/08/17 Subjective: Ready to go home. Physical Exam (OB) Vital Signs: Temp Pulse Resp BP Pulse Ox 98.3 F 95 18 117/55 L 98 10/08/17 08:21 10/08/17 08:21 10/08/17 08:21 10/08/17 07:10 10/08/17 08:21 Intake & Output 10/07/17 10/08/17 10/09/17 06:59 06:59 06:59 Intake Total 2800 240 240 Output Total 2600 Balance 200 240 240 - PIH/Pre-Eclampsia DTR's: 2 + Clonus: Negative Headache: Absent Epigastric Pain: No Visual Changes: No - Dressing Removed: No Incision: Well Approximated Closure Type: op site - Lochia Lochia Amount: Scant < 10 ml Lochia Color: Rubra/Red - Abdomen Description: Tender, Soft, Round Hernia Present: No Bowel Sounds: Normoactive Flatus Presence: Present Stool: No Fundal Description: Firm, Midline Fundal Height: u/u - u/2 Objective-Diagnostic Laboratory: 10/07/17 07:35
--- NOTE | 2017-10-08 10:17 | PDOC DISCHARGE SUMMARY ---
Final Diagnosis Discharge Date: 10/08/17 - Final Diagnosis (1) Delivery by emergency caesarean section Is this a current diagnosis for this admission?: Yes (2) Gestational diabetes Is this a current diagnosis for this admission?: Yes (3) Obesity affecting Is this a current diagnosis for this admission?: Yes (4) Is this a current diagnosis for this admission?: Yes (5) Uterine fibroid in Is this a current diagnosis for this admission?: Yes Discharge Data - Discharge Medication Prescriptions: Oxycodone HCl/Acetaminophen [Percocet 5-325 mg Tablet] 1 tab PO Q4HP PRN #20 tablet PRN Reason: Docusate Sodium [Colace 100 mg Capsule] 100 mg PO BID #30 capsule Ferrous Sulfate 325 mg PO BID #60 tablet. Ibuprofen [Motrin 800 mg Tablet] 800 mg PO Q6 #30 tablet Home Medications: Docusate Sodium [Colace 100 mg Capsule] 100 mg PO BID #30 capsule 10/08/17 Ferrous Sulfate 325 mg PO BID #60 tablet. 10/08/17 Ibuprofen [Motrin 800 mg Tablet] 800 mg PO Q6 #30 tablet 10/08/17 Oxycodone HCl/Acetaminophen [Percocet 5-325 mg Tablet] 1 tab PO Q4HP PRN #20 tablet 10/08/17 Gestational Age: 37.5 wks Reason(s) for Admission: Induction of Labor Procedures: Ultrasound Intrapartum Procedure(s): Spontaneous Vaginal Delivery - Data Baby 1 Female at 1 minute: 7 at 5 minutes: 9 Weight: 3.657 kg Home with Mother: Yes Complications: No - Diagnosis Test Laboratory: Temp Pulse Resp BP Pulse Ox 98.3 F 95 18 117/55 L 98 10/08/17 08:21 10/08/17 08:21 10/08/17 08:21 10/08/17 07:10 10/08/17 08:21 10/05/17 10/05/17 10/07/17 21:00 21:22 07:35 RBC 4.02 3.68 L Hgb 11.1 L 10.2 L Hct 34.6 L 31.5 L Urine Opiates Screen NEGATIVE - Discharge information/Instructions Discharge Activity: Activity As Tolerated, Balance Activity w/Rest, No Driving, No Lifting Over 10 Pounds, No Lifting/Push/Pulling, Pelvic Rest, Slowly Increase Activity, No tub bath Discharge Diet: Regular Disposition: HOME, SELF-CARE Follow up with: [facility] in: 1, Weeks
--- NOTE | 2017-11-05 13:20 | OPERATIVE REPORT E ---
Operative Report NAME: BLANCA CARSON : 1990 AGE: 26Y DATE OF SURGERY: 10/06/2017 ROOM: 228 PREOPERATIVE DIAGNOSES: 1. IUP at 37 weeks and 5 days. 2. A1 diabetes, noncompliant. 3. Macrosomia. 4. Nonreassuring heart tones, remote from delivery. POSTOPERATIVE DIAGNOSES: 1. IUP at 37 weeks and 5 days. 2. A1 diabetes, noncompliant. 3. Macrosomia. 4. Nonreassuring heart tones, remote from delivery. SURGEON: SNOW LUCIO MD ANESTHESIOLOGIST: HINA VILLASENOR MD ANESTHESIA: Spinal. FINDINGS: Female infant, cephalic presentation with Apgars of 7 and 9, weight 8 pounds 1 ounce. Pedunculated fibroid at the uterine fundus that was approximately 5 cm long. SPECIMENS REMOVED: Pedunculated fibroid and placenta. ESTIMATED BLOOD LOSS: 1000 mL. COMPLICATIONS: None. PROCEDURE: Low-transverse hysterotomy section with pedunculated fibroid removal or myomectomy. DESCRIPTION OF PROCEDURE: The patient was taken to the operating room, prepared and draped in the normal sterile fashion in a supine position with a leftward tilt. A transverse skin incision was made with a scalpel and carried through to the underlying layer of fascia with the same scalpel. The fascia was excised in the midline and extended laterally with Nelson. The fascia was dissected from the rectus muscle sharply with Nelson and the rectus muscle was divided. Peritoneal cavity was entered bluntly with good visualization of the bladder and the uterus. A bladder blade was inserted. Hysterotomy was nicked with a scalpel and extended laterally with surgeon finger fracture. The infant was then delivered atraumatically. The nose and mouth were suctioned with a suction bulb and the cord was clamped and cut and the infant was handed off to waiting cork mixer. The cord blood was collected and the placenta was removed manually. The uterus was exteriorized and the fibroid was noted at this time. The uterus was then cleared of clots and debris. The hysterotomy was closed with 0 Monocryl in a running, locked fashion. A second layer of the same suture was used to imbricate to ensure hemostasis. Decision was then made to remove the pedunculated fibroid due to concerns of shear effect on return to the abdomen. This was okay with the patient and verbalized consent was obtained, as the patient was under regional anesthesia. A Gena clamp was then placed at the base of the pedunculation and this was used to crush the tissue several times. The fibroid was then ligated from the base using Castellon scissors. The base was then oversewn using 0-Monocryl in a running, locked fashion and a second layer of the same suture was used in the imbricating style to ensure hemostasis. The pressure was held at this site until hemostasis was assured and the uterus was returned to the abdomen and peritoneal cavity was cleared of clots and debris. A small piece of Interseed was placed over top of the myomectomy site to help prevent adhesion formation. The rectus muscle and peritoneum were then reapproximated with a mattress suture of 2-0 Chromic. The fascia was closed with 0-Vicryl. The subcutaneous layer was closed with plain catgut and the skin was closed with 4-0 Vicryl. The patient tolerated the procedure well. Sponge, lap, and needle counts were correct x2 and the patient was taken to recovery in a stable condition. DICTATING PHYSICIAN: SNOW LUCIO M.D. [id number] PHY#: [id number] ID: [id number] JOB#: [id number] ACCT: [id number] cc:SNOW LUCIO M.D. >
== END 2017-10-08 11:02 | disposition home or self-care (01) | DRG 766 ==
LOC: LR 20:38 → 2S 10-06 18:11
PROVIDERS: ADMIT Obstetrics & Gynecology; ATTEND Obstetrics & Gynecology
PROC: 10D00Z1 Extraction of Products of Conception, Low, Open Approach (ICD-10-PCS; principal; 2017-10-06)
PROC: 0UB90ZZ Excision of Uterus, Open Approach (ICD-10-PCS; 2017-10-06)
DX: O76 Abnormality in fetal heart rate and rhythm complicating labor and delivery (principal); O24.420 Gestational diabetes mellitus in childbirth, diet controlled; O99.214 Obesity complicating childbirth; O34.13 Maternal care for benign tumor of corpus uteri, third trimester; D25.9 Leiomyoma of uterus, unspecified; Z3A.37 37 weeks gestation of pregnancy; Z37.0 Single live birth; Z91.19 Patient's noncompliance with other medical treatment and regimen; O36.63X0 Maternal care for excessive fetal growth, third trimester, not applicable or unspecified; Z88.8 Allergy status to other drugs, medicaments and biological substances; Z88.1 Allergy status to other antibiotic agents
CPT/HCPCS: 1961; 36415; 76819; 80307; 81005; 82962; 83036; 85025; 85027; 86592; 86850; 86900; 86901; 88304; 88307; 94760; 94799; C1765; J0131; J0690; J1885; J2250; J2300; J2540; J2590; J2704; J3010; J3490

== ENCOUNTER 2017-12-12 10:18 | Emergency (ER) | payer MEDICAID ==
[2017-12-12 10:31] VITALS: BP 126/82
[2017-12-12] MEDS ORDERED: IBUPROFEN 800 MG TABLET PO ONE (10:43)
[2017-12-12] MEDS ORDERED: ACETAMINOPHEN 325 MG TABLET PO ONE (10:43)
--- NOTE | 2017-12-12 10:44 | ER Document Report ---
HPI - HPI Patient complains to provider of: Pain to her right third finger around the nail Onset: Other - 2 days Pain Level: 3 Context: 27-year-old female with a paronychia to her right third ulnar side of her finger for 2 days. 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 Associated Symptoms: None Exacerbated by: Movement Relieved by: Denies - ROS ROS below otherwise negative: Yes Systems Reviewed and Negative: Yes All other systems reviewed and negative - REPRODUCTIVE Reproductive: REPORTS: : Past Medical History - General Information source: Patient - Social History Smoking Status: Never Smoker Lives with: Family Family History: CAD, CVA, DM, Hyperlipidemia, Hypertension, Other - dialysis Neurological Medical History: Reports: Hx Migraine Endocrine Medical History: Reports: Hx Diabetes Mellitus Type 2 - borderline Renal/ Medical History: Denies: Hx Peritoneal Dialysis Musculoskeletal Medical History: Reports Hx Arthritis Surgical Hx: Negative - Immunizations Immunizations up to date: No Hx Diphtheria, Pertussis, Tetanus Vaccination: No Vertical Provider Document - CONSTITUTIONAL Agree With Documented VS: Yes - INFECTION CONTROL TRAVEL OUTSIDE OF THE [place] IN LAST 30 DAYS: No - MUSCULOSKELETAL/EXTREMETIES Musculoskeletal/Extremeties: MAEW, FROM, Tender - Ulnar side of the right third finger nail paronychia, no felon., Edema - NEURO Level of Consciousness: Awake Motor/Sensory: No Motor Deficit, No Sensory Deficit Course - Vital Signs Vital signs: Temp Pulse Resp BP Pulse Ox 98.6 F 74 14 126/82 H 99 12/12/17 10:26 12/12/17 10:26 12/12/17 10:26 12/12/17 10:26 12/12/17 10:26 Procedures - Incision and Drainage Right Finger 3rd digit Time completed: 11:05 Type: Simple Blade size: 11 I&D procedure: Betadine prep applied, Sterile dressing applied Incision Method: Incision made by scalpel Amount/type of drainage: large pus, derrofed Discharge - Discharge Clinical Impression: I&D of paronychia Condition: Good Disposition: HOME, SELF-CARE Instructions: Paronychia ([facility]) Additional Instructions: Soak in warm soapy water 3 times a day. dry dressing Return to the emergency room if the symptoms worsen Forms: Return to Work Referrals: REEMA GAN MD [Primary Care Provider] - Follow up as needed
== END 2017-12-12 11:12 | disposition home or self-care (01) ==
LOC: ER 10:18
DX: L03.011 Cellulitis of right finger (principal)
CPT/HCPCS: 99283; 10060; J3490 ×2

== ENCOUNTER → 2018-08-31 | Outpatient (CLI) | payer MEDICAID ==
[2018-08-31 09:47] LABS: ABSOLUTE BASOPHILS # (AUTO) 0.1 10^3/uL (0.0-0.2); ABSOLUTE EOSINOPHILS # (AUTO) 0.2 10^3/uL (0.0-0.6); ABSOLUTE LYMPHOCYTES (AUTO) 2.7 10^3/uL (0.5-4.7); ABSOLUTE MONOCYTES (AUTO) 0.3 10^3/uL (0.1-1.4); ABSOLUTE NEUT (AUTO) 4.2 10^3/uL (1.7-8.2); EOSINOPHILS % (AUTO) 2.5 % (0-6); HEMATOCRIT 36.7 % (36.0-47.0); HEMOGLOBIN 11.6 g/dL (12.0-15.5); LYMPHOCYTES % (AUTO) 36.8 % (13-45); MEAN CORPUSCULAR HEMOGLOBIN 25.9 pg (27.0-33.4); MEAN CORPUSCULAR HGB CONC 31.7 g/dL (32.0-36.0); MEAN CORPUSCULAR VOLUME 82 fl (80-97); MONOCYTES % (AUTO) 3.9 % (3-13); PLATELET COUNT 312 10^3/uL (150-450); RED BLOOD COUNT 4.48 10^6/uL (3.72-5.28); RED CELL DISTRIBUTION WIDTH 15.6 % (11.5-14.0); SEGMENTED NEUTROPHILS % (AUTO) 55.8 % (42-78); TOTAL CELLS COUNTED % (AUTO) 100 %; WHITE BLOOD COUNT 7.5 10^3/uL (4.0-10.5)
--- NOTE | 2018-08-31 09:48 | RADIOLOGY REPORT (SQ) ---
EXAM DESCRIPTION: KNEE RIGHT 4 VIEWS; KNEE LEFT 4 VIEW COMPLETED DATE/TIME: 08/31/2018 9:23 am REASON FOR STUDY: JAZMIN KNEE PAIN R10.10 UPPER ABDOMINAL PAIN, UNSPECIFIED COMPARISON: None. NUMBER OF VIEWS: Four views. TECHNIQUE: AP, lateral, and both oblique radiographic images acquired of the right and left knee. LIMITATIONS: None. FINDINGS: MINERALIZATION: Normal. BONES: No acute fracture or dislocation. No worrisome bone lesions. JOINT: No right or left suprapatellar effusion. SOFT TISSUES: No soft tissue swelling. No radio-opaque foreign body. OTHER: No other significant finding. IMPRESSION: NEGATIVE STUDY OF THE RIGHT AND LEFT KNEE. NO RADIOGRAPHIC EVIDENCE OF ACUTE INJURY. TECHNICAL DOCUMENTATION: JOB ID: [id number] [employer]- All Rights Reserved Reading location - IP/workstation name: [email or web address]
--- NOTE | 2018-08-31 09:48 | RADIOLOGY REPORT (SQ) ---
EXAM DESCRIPTION: KNEE RIGHT 4 VIEWS; KNEE LEFT 4 VIEW COMPLETED DATE/TIME: 08/31/2018 9:23 am REASON FOR STUDY: JAZMIN KNEE PAIN R10.10 UPPER ABDOMINAL PAIN, UNSPECIFIED COMPARISON: None. NUMBER OF VIEWS: Four views. TECHNIQUE: AP, lateral, and both oblique radiographic images acquired of the right and left knee. LIMITATIONS: None. FINDINGS: MINERALIZATION: Normal. BONES: No acute fracture or dislocation. No worrisome bone lesions. JOINT: No right or left suprapatellar effusion. SOFT TISSUES: No soft tissue swelling. No radio-opaque foreign body. OTHER: No other significant finding. IMPRESSION: NEGATIVE STUDY OF THE RIGHT AND LEFT KNEE. NO RADIOGRAPHIC EVIDENCE OF ACUTE INJURY. TECHNICAL DOCUMENTATION: JOB ID: [id number] [employer]- All Rights Reserved Reading location - IP/workstation name: [email or web address]
[2018-08-31 10:07] LABS: ALANINE AMINOTRANSFERASE 21 U/L (9-52); ALBUMIN 3.5 g/dL (3.5-5.0); ALKALINE PHOSPHATASE 58 U/L (38-126); AMYLASE 55 U/L (30-110); ANION GAP 6 (5-19); ASPARTATE AMINO TRANSFERASE 13 U/L (14-36); BILIRUBIN,DIRECT 0.2 mg/dL (0.0-0.4); BILIRUBIN,TOTAL 0.3 mg/dL (0.2-1.3); BLOOD UREA NITROGEN 6 mg/dL (7-20); CALCIUM 9.3 mg/dL (8.4-10.2); CARBON DIOXIDE 28 mmol/L (22-30); CHLORIDE 108 mmol/L (98-107); GLUCOSE 93 mg/dL (75-110); LIPASE 45.4 U/L (23-300); POTASSIUM 3.9 mmol/L (3.6-5.0); SODIUM 141.6 mmol/L (137-145); TOTAL PROTEIN 6.2 g/dL (6.3-8.2); TRIGLYCERIDES 64 mg/dL (<150); URIC ACID 3.9 mg/dL (2.5-6.2)
[2018-08-31 10:18] LABS: DIRECT LDL 112 mg/dL (<100)
--- NOTE | 2018-08-31 11:01 | RADIOLOGY REPORT (SQ) ---
EXAM DESCRIPTION: U/S ABDOMEN COMPLETE W/DOPPLER COMPLETED DATE/TIME: 08/31/2018 9:19 am REASON FOR STUDY: UPPER ABDOMINAL PAIN R10.10 UPPER ABDOMINAL PAIN, UNSPECIFIED COMPARISON: 12/20/2014 right upper quadrant ultrasound TECHNIQUE: Dynamic and static grayscale images acquired of the abdomen and recorded on PACS. Additio nal selected color Doppler and spectral images recorded. Note: Study does not meet criteria for complete doppler/duplex scan LIMITATIONS: Body habitus, midline bowel gas FINDINGS: PANCREAS: Midline pancreas unremarkable LIVER: No masses. Echotexture normal. LIVER VASCULATURE: Normal directional flow of the main portal vein and hepatic veins. GALLBLADDER: No stones. Normal wall thickness. No pericholecystic fluid. ULTRASOUND-DETECTED JOSÉ'S SIGN: Negative. INTRAHEPATIC DUCTS AND COMMON DUCT: CBD and intrahepatic ducts normal caliber. No filling defects. INFERIOR VENA CAVA: Normal flow. AORTA: No aneurysm. RIGHT KIDNEY: Normal size. Normal echogenicity. No solid or suspicious masses. No hydronephros is. No calcifications. LEFT KIDNEY: Normal size. Normal echogenicity. No solid or suspicious masses. No hydronephrosi s. No calcifications. SPLEEN: Normal size. No solid masses. PERITONEAL AND PLEURAL SPACES: No ascites or effusions. OTHER: No other significant finding. IMPRESSION: NORMAL ABDOMINAL ULTRASOUND. TECHNICAL DOCUMENTATION: JOB ID: [id number] [employer] All Rights Reserved Reading location - IP/workstation name: [email or web address]
== END ==
LOC: RAD 08:50
PROVIDERS: ATTEND Family Medicine Geriatric Medicine
DX: M25.561 Pain in right knee (principal); K21.0 Gastro-esophageal reflux disease with esophagitis; R10.10 Upper abdominal pain, unspecified; Z79.899 Other long term (current) drug therapy
CPT/HCPCS: 36415; 76700; 80053; 80061; 82150; 83690; 84443; 84550; 85025; 93976

== ENCOUNTER 2018-09-12 08:24 | Emergency (ER) | payer MEDICAID ==
[2018-09-12 08:38] VITALS: BP 128/77
--- NOTE | 2018-09-12 09:09 | ER Document Report ---
HPI - HPI Patient complains to provider of: ear pain Time Seen by Provider: 09/12/18 08:58 Onset: Other - 2 days Onset/Duration: Waxing and waning Quality of pain: Pressure Severity: Severe Pain Level: 5 Context: Patient presents the emergency department with complaints of left-sided ear pain that hurts when she swallows. Reports it feels itchy and scratchy with pressure. Denies recent swimming denies fever vomiting diarrhea reports some nausea but reports she may be . No other complaints otherwise healthy individual. Associated Symptoms: None Exacerbated by: Other - Swallowing Relieved by: Denies Similar symptoms previously: No Recently seen / treated by doctor: No - REPRODUCTIVE Reproductive: DENIES: : Past Medical History - General Information source: Patient Last Menstrual Period: 08/20/18 - Social History Smoking Status: Unknown if Ever Smoked Cigarette use (# per day): No Frequency of alcohol use: None Drug Abuse: None Lives with: Family Family History: CAD, CVA, DM, Hyperlipidemia, Hypertension, Other - dialysis Patient has suicidal ideation: No Patient has homicidal ideation: No Neurological Medical History: Reports: Hx Migraine Endocrine Medical History: Reports: Hx Diabetes Mellitus Type 2 - borderline Renal/ Medical History: Denies: Hx Peritoneal Dialysis Musculoskeletal Medical History: Reports Hx Arthritis Past Surgical History: Reports: Hx Section - Immunizations Immunizations up to date: No Hx Diphtheria, Pertussis, Tetanus Vaccination: No Vertical Provider Document - CONSTITUTIONAL Agree With Documented VS: Yes Exam Limitations: No Limitations General Appearance: WD/WN, No Apparent Distress - INFECTION CONTROL TRAVEL OUTSIDE OF THE [place] IN LAST 30 DAYS: No - HEENT HEENT: Atraumatic, Normal ENT Exam, Normocephalic. negative: Conjuctival Injection, Pharyngeal Exudate, Pharyngeal Tenderness, Pharyngeal Erythema, Tympanic Membrane Red, Tympanic Membrane Bulging - NECK Neck: Normal Inspection, Supple. negative: Lymphadenopathy-Left, Lymphadenopathy-Right - RESPIRATORY Respiratory: Breath Sounds Normal, No Respiratory Distress - CARDIOVASCULAR Cardiovascular: Regular Rate - MUSCULOSKELETAL/EXTREMETIES Musculoskeletal/Extremeties: AIDEN [place] - NEURO Level of Consciousness: Awake, Alert, Appropriate Motor/Sensory: No Motor Deficit - DERM Integumentary: Warm, Dry Course - Re-evaluation Re-evalutation: 09/12/18 09:08 No otitis media/externa, no erythema no swelling no discharge patient instructed on decongestants Tylenol for pain follow-up with primary care for recheck of ear. She verbalized understanding. Dictation of this chart was performed using voice recognition software; therefore, there may be some unintended grammatical errors. - Vital Signs Vital signs: Temp Pulse Resp BP Pulse Ox 98.6 F 91 16 128/77 H 99 09/12/18 08:34 09/12/18 08:34 09/12/18 08:34 09/12/18 08:34 09/12/18 08:34 Discharge - Discharge Clinical Impression: Left ear pain Condition: Stable Disposition: HOME, SELF-CARE Instructions: Decongestant-Antihistamine Medication ([facility]), Acetaminophen Additional Instructions: *You have been evaluated for ear pain, *Take Tylenol as indicated for pain *Follow-up with your primary care provider within one week for recheck *Return to ED for worsening condition, changes, needs Monitor your blood pressure. Your blood pressure was elevated today. This may be because you were anxious, in pain or because you need medication. It is important to follow up with your primary care provider for full evaluation. Forms: Elevated Blood Pressure
== END 2018-09-12 09:15 | disposition home or self-care (01) ==
LOC: ER 08:24
DX: H92.02 Otalgia, left ear (principal); R11.0 Nausea
CPT/HCPCS: 99282

== ENCOUNTER 2019-01-21 08:56 | Emergency (ER) | payer MEDICAID ==
[2019-01-21] MEDS ORDERED: ASPIRIN 81 MG TABLET, CHEWABLE PO ONE (09:21)
[2019-01-21 09:30] LABS: ABSOLUTE BASOPHILS # (AUTO) 0.1 10^3/uL (0.0-0.2); ABSOLUTE EOSINOPHILS # (AUTO) 0.2 10^3/uL (0.0-0.6); ABSOLUTE LYMPHOCYTES (AUTO) 3.1 10^3/uL (0.5-4.7); ABSOLUTE MONOCYTES (AUTO) 0.4 10^3/uL (0.1-1.4); ABSOLUTE NEUT (AUTO) 5.5 10^3/uL (1.7-8.2); BASOPHILS % (AUTO) 0.6 % (0-2); EOSINOPHILS % (AUTO) 2.2 % (0-6); HEMOGLOBIN 11.7 g/dL (12.0-15.5); LYMPHOCYTES % (AUTO) 33.6 % (13-45); MEAN CORPUSCULAR HEMOGLOBIN 26.3 pg (27.0-33.4); MEAN CORPUSCULAR HGB CONC 31.7 g/dL (32.0-36.0); MEAN CORPUSCULAR VOLUME 83 fl (80-97); MONOCYTES % (AUTO) 4.2 % (3-13); PLATELET COUNT 339 10^3/uL (150-450); RED BLOOD COUNT 4.45 10^6/uL (3.72-5.28); RED CELL DISTRIBUTION WIDTH 14.8 % (11.5-14.0); SEGMENTED NEUTROPHILS % (AUTO) 59.4 % (42-78); TOTAL CELLS COUNTED % (AUTO) 100 %; WHITE BLOOD COUNT 9.2 10^3/uL (4.0-10.5)
--- NOTE | 2019-01-21 09:34 | ER Document Report ---
ED Medical Screen (RME) - General Chief Complaint: Chest Pain Stated Complaint: CHEST PAIN Time Seen by Provider: 01/21/19 09:31 Mode of Arrival: Ambulatory Information source: Patient Notes: Patient presents complaining of midsternal chest tightness for the past 3 days is been off and on. Patient reports cough for the past 4 days. No fever. Patient denies any significant medical history. I have greeted and performed a rapid initial assessment of this patient. A comprehensive ED assessment and evaluation of the patient, analysis of test results and completion of the medical decision making process will be conducted by additional ED providers. TRAVEL OUTSIDE OF THE [place] IN LAST 30 DAYS: No - Related Data Allergies/Adverse Reactions: ciprofloxacin [From Cipro] Adverse Reaction (Mild, Verified 12/12/17 10:23) metoclopramide HCl [From Reglan] Adverse Reaction (Mild, Verified 12/12/17 10:23) morphine [Morphine] Adverse Reaction (Mild, Verified 12/12/17 10:23) prochlorperazine maleate [From Compazine] Adverse Reaction (Mild, Verified 12/12/17 10:23) prochlorperazine edisylate [From Compazine] Adverse Reaction (Verified 12/12/17 10:23) feels funny Past Medical History Neurological Medical History: Reports: Hx Migraine Endocrine Medical History: Reports: Hx Diabetes Mellitus Type 2 - borderline Renal/ Medical History: Denies: Hx Peritoneal Dialysis Musculoskeltal Medical History: Reports Hx Arthritis Past Surgical History: Reports: Hx Section - Immunizations Immunizations up to date: No Hx Diphtheria, Pertussis, Tetanus Vaccination: No Physical Exam - Vital signs Vitals: Temp Pulse Resp BP Pulse Ox 98.6 F 73 16 131/66 H 98 01/21/19 09:15 01/21/19 09:15 01/21/19 09:15 01/21/19 09:15 01/21/19 09:15 - General General appearance: Appears well In distress: None - Respiratory Respiratory status: No respiratory distress Breath sounds: Normal - Cardiovascular Rhythm: Regular Heart sounds: S1 appreciated, S2 appreciated Course - Vital Signs Vital signs: Temp Pulse Resp BP Pulse Ox 98.6 F 73 16 131/66 H 98 01/21/19 09:15 01/21/19 09:15 01/21/19 09:15 01/21/19 09:15 01/21/19 09:15 - Laboratory Result Diagrams: 01/21/19 09:20 01/21/19 09:20
[2019-01-21 09:55] LABS: ALBUMIN 3.4 g/dL (3.5-5.0); ALKALINE PHOSPHATASE 53 U/L (38-126); ANION GAP 5 (5-19); ASPARTATE AMINO TRANSFERASE 15 U/L (14-36); BILIRUBIN,TOTAL 0.3 mg/dL (0.2-1.3); BLOOD UREA NITROGEN 8 mg/dL (7-20); CALCIUM 9.3 mg/dL (8.4-10.2); CARBON DIOXIDE 29 mmol/L (22-30); CHLORIDE 104 mmol/L (98-107); CREATINE KINASE 76 U/L (30-135); GLUCOSE 91 mg/dL (75-110); POTASSIUM 4.2 mmol/L (3.6-5.0); TOTAL PROTEIN 6.1 g/dL (6.3-8.2)
[2019-01-21 10:06] LABS: CREATINE KINASE MB < 0.22 ng/mL (<4.55); TROPONIN I < 0.012 ng/mL
--- NOTE | 2019-01-21 11:00 | RADIOLOGY REPORT (SQ) ---
EXAM DESCRIPTION: CHEST 2 VIEWS COMPLETED DATE/TIME: 01/21/2019 10:46 am REASON FOR STUDY: cp COMPARISON: 02/20/2016 None. EXAM PARAMETERS: NUMBER OF VIEWS: two views TECHNIQUE: Digital Frontal and Lateral radiographic views of the chest acquired. RADIATION DOSE: NA LIMITATIONS: none FINDINGS: LUNGS AND PLEURA: No opacities, masses or pneumothorax. No pleural effusion. MEDIASTINUM AND HILAR STRUCTURES: No masses or contour abnormalities. HEART AND VASCULAR STRUCTURES: Borderline cardiomegaly suggested. No evidence for failure. BONES: No acute findings. HARDWARE: None in the chest. OTHER: No other significant finding. IMPRESSION: 1. No acute pulmonary findings. 2. Borderline cardiomegaly suggested. No evidence for failure. TECHNICAL DOCUMENTATION: JOB ID: [id number] [employer]- All Rights Reserved Reading location - IP/workstation name: [email or web address]
--- NOTE | 2019-01-21 13:13 | EKG REPORT ---
SEVERITY:- NORMAL ECG - SINUS RHYTHM : Confirmed by: Luther Valverde MD 21-Jan-2019 13:11:55
--- NOTE | 2019-01-21 14:19 | ER Document Report ---
ED Cardiac - General Chief Complaint: Chest Tightness Stated Complaint: CHEST PAIN Time Seen by Provider: 01/21/19 09:31 Mode of Arrival: Ambulatory TRAVEL OUTSIDE OF THE [place] IN LAST 30 DAYS: No - Related Data Allergies/Adverse Reactions: ciprofloxacin [From Cipro] Adverse Reaction (Mild, Verified 12/12/17 10:23) metoclopramide HCl [From Reglan] Adverse Reaction (Mild, Verified 12/12/17 10:23) morphine [Morphine] Adverse Reaction (Mild, Verified 12/12/17 10:23) prochlorperazine maleate [From Compazine] Adverse Reaction (Mild, Verified 12/12/17 10:23) prochlorperazine edisylate [From Compazine] Adverse Reaction (Verified 12/12/17 10:23) feels funny Past Medical History - General Information source: Patient - Social History Smoking Status: Never Smoker Frequency of alcohol use: None Drug Abuse: None Family History: CAD, CVA, DM, Hyperlipidemia, Hypertension, Other - dialysis Patient has suicidal ideation: No Patient has homicidal ideation: No Neurological Medical History: Reports: Hx Migraine Endocrine Medical History: Reports: Hx Diabetes Mellitus Type 2 - borderline Renal/ Medical History: Denies: Hx Peritoneal Dialysis Musculoskeletal Medical History: Reports Hx Arthritis Past Surgical History: Reports: Hx Section - Immunizations Immunizations up to date: No Hx Diphtheria, Pertussis, Tetanus Vaccination: No Physical Exam - Vital signs Vitals: Temp Pulse Resp BP Pulse Ox 98.6 F 73 16 131/66 H 98 01/21/19 09:15 01/21/19 09:15 01/21/19 09:15 01/21/19 09:15 01/21/19 09:15 Course - Vital Signs Vital signs: Temp Pulse Resp BP Pulse Ox 98.6 F 73 16 131/66 H 98 01/21/19 09:15 01/21/19 09:15 01/21/19 09:15 01/21/19 09:15 01/21/19 09:15 - Laboratory Result Diagrams: 01/21/19 09:20 01/21/19 09:20 Laboratory results interpreted by me: 01/21/19 01/21/19 09:20 09:20 Hgb 11.7 L MCH 26.3 L MCHC 31.7 L RDW 14.8 H Total Protein 6.1 L Albumin 3.4 L Discharge - Discharge Clinical Impression: Chest pain Qualifiers: Chest pain type: unspecified Qualified Code(s): R07.9 - Chest pain, unspecified Condition: Good Disposition: HOME, SELF-CARE Admitting Provider: Calvin Instructions: Chest Wall Pain ([facility]), Chest Pain of Unclear Cause ([facility]) Additional Instructions: See the referral doctor in follow up. Rest. Please return here for any problems or any concerns. Prescriptions: Ibuprofen [Motrin 600 mg Tablet] 600 mg PO TID #30 tablet Forms: Return to Work
[2019-01-21 14:38] VITALS: BP 139/92
== END 2019-01-21 14:43 | disposition home or self-care (01) ==
LOC: ER 08:56
DX: R07.9 Chest pain, unspecified (principal); I10 Essential (primary) hypertension; E11.9 Type 2 diabetes mellitus without complications
CPT/HCPCS: 36415; 71046; 80053; 81025; 82550; 82553; 84484; 84703; 85025; 93005; 93010; 99285

== ENCOUNTER 2019-10-24 09:53 | Emergency (ER) | payer MEDICAID ==
[2019-10-24 10:05] VITALS: BP 136/77
--- NOTE | 2019-10-24 10:17 | ER Document Report ---
ED General - General Chief Complaint: Ankle Injury Stated Complaint: ANKLE INJURY Time Seen by Provider: 10/24/19 09:56 Notes: Patient presents with left ankle pain moderate, worse with weightbearing but able to weight-bear as with and without swelling since twisting her ankle and the steps last night. No knee pain no calf pain no other injuries. TRAVEL OUTSIDE OF THE [place] IN LAST 30 DAYS: No - Related Data Allergies/Adverse Reactions: ciprofloxacin [From Cipro] Adverse Reaction (Mild, Verified 12/12/17 10:23) metoclopramide HCl [From Reglan] Adverse Reaction (Mild, Verified 12/12/17 10:23) morphine [Morphine] Adverse Reaction (Mild, Verified 12/12/17 10:23) prochlorperazine maleate [From Compazine] Adverse Reaction (Mild, Verified 12/12/17 10:23) prochlorperazine edisylate [From Compazine] Adverse Reaction (Verified 12/12/17 10:23) feels funny Past Medical History - Social History Smoking Status: Unknown if Ever Smoked Family History: CAD, CVA, DM, Hyperlipidemia, Hypertension, Other - dialysis Neurological Medical History: Reports: Hx Migraine Endocrine Medical History: Reports: Hx Diabetes Mellitus Type 2 - borderline Renal/ Medical History: Denies: Hx Peritoneal Dialysis Musculoskeletal Medical History: Reports Hx Arthritis Past Surgical History: Reports: Hx Section - Immunizations Immunizations up to date: No Hx Diphtheria, Pertussis, Tetanus Vaccination: No Review of Systems - Review of Systems Notes: REVIEW OF SYSTEMS GEN: Denies fever, chills, weight loss ENT: Denies sore throat, nasal discharge, ear pain EYES: Denies blurry vision, eye pain, discharge CV: Denies chest pain, palpitations, edema RESP: Denies cough, shortness of breath, wheezing GI: Denies abdominal pain, nausea, vomiting, diarrhea MSK ankle pain left SKIN: Denies rash, skin lesions LYMPH: Denies swollen glands/lymph nodes NEURO: Denies headache, focal weakness or numbness, dizziness PSYCH: Denies depression, suicidal or homicidal ideation PHYSICAL EXAMINATION G general: No acute distress, well-nourished Head: Atraumatic, normocephalic ENT: Mouth normal, oropharynx moist, lips normal Eyes: Conjunctiva normal, pupils equal, lids normal Neck: No JVD, supple, no guarding Resp: No resp distress, equal chest rise GI: Nondistended, no guarding Back: No midline or CVA tenderness Ext: Tenderness in the lateral malleolus on the left ankle without swelling and with full range of motion. No foot tenderness no fibular head or calf tenderness compartment soft pulses normal Skin: Well-perfused, no rash Neuro: Awake, alert. Face symmetric.. Physical Exam - Vital signs Vitals: Temp Pulse Resp BP Pulse Ox 99.2 F 95 20 136/77 H 99 10/24/19 10:03 10/24/19 10:10/24/19 10:10/24/19 10:10/24/19 10:03 Course - Re-evaluation Re-evalutation: 10/24/19 10:17 Ankle sprain negative x-rays, soft splint ice elevation crutches work note Follow-up with primary care - Vital Signs Vital signs: Temp Pulse Resp BP Pulse Ox 99.2 F 95 20 136/77 H 99 10/24/19 10:03 10/24/19 10:10/24/19 10:03 10/24/19 10:03 10/24/19 10:03 - Diagnostic Test Radiology reviewed: Image reviewed, Reports reviewed Discharge - Discharge Clinical Impression: Sprain of talofibular ligament of left ankle Condition: Good Disposition: HOME, SELF-CARE Instructions: Anurag Wrap ([facility]), Ice & Elevation ([facility]), Soft Ankle Splint ([facility]), Use of Crutches ([facility]) Forms: Return to Work
--- NOTE | 2019-10-24 10:51 | RADIOLOGY REPORT (SQ) ---
EXAM DESCRIPTION: ANKLE LEFT COMPLETE IMAGES COMPLETED DATE/TIME: 10/24/2019 10:15 am REASON FOR STUDY: inj COMPARISON: None. NUMBER OF VIEWS: Three views. TECHNIQUE: AP, lateral, and oblique radiographic images acquired of the left ankle. LIMITATIONS: None. FINDINGS: MINERALIZATION: Normal. BONES: No acute fracture or dislocation. No worrisome bone lesions. JOINTS: No effusions. SOFT TISSUES: No soft tissue swelling. No foreign body. OTHER: No other significant finding. IMPRESSION: NEGATIVE STUDY OF THE LEFT ANKLE. NO RADIOGRAPHIC EVIDENCE OF ACUTE INJURY. TECHNICAL DOCUMENTATION: JOB ID: [id number] 2010 [employer]- All Rights Reserved Reading location - IP/workstation name: [email or web address]
== END 2019-10-24 10:40 | disposition home or self-care (01) ==
LOC: ER 09:53
DX: S93.492A Sprain of other ligament of left ankle, initial encounter (principal); X50.9XXA Other and unspecified overexertion or strenuous movements or postures, initial encounter
CPT/HCPCS: 99283

== ENCOUNTER → 2019-11-21 | Outpatient (CLI) | payer BC, MEDICAID ==
--- NOTE | 2019-11-21 15:58 | RADIOLOGY REPORT (SQ) ---
EXAM DESCRIPTION: VENOUS UNILATERAL LOWER IMAGES COMPLETED DATE/TIME: 11/21/2019 1:36 pm REASON FOR STUDY: LLE PAIN M79.605 PAIN IN LEFT LEG COMPARISON: None. TECHNIQUE: Dynamic and static gould scale and color images acquired of the left leg venous system. Se lected spectral images acquired with additional compression and augmentation maneuvers. The contralat eral common femoral vein and saphenofemoral junction were also imaged. Images stored on PACS. LIMITATIONS: None. FINDINGS: COMMON FEMORAL: Normal phasicity, compression and augmentation. No visualized echogenic ma terial on gould scale. No defects on color images. FEMORAL: Normal compression and augmentation. No visualized echogenic material on gould scale. No defe cts on color images. POPLITEAL: Normal compression, augmentation. No visualized echogenic material on gould scale. No defec ts on color images. CALF VESSELS: Normal compression, augmentation. No visualized echogenic material on gould scale. No de fects on color images. GSV and SSV: Normal compression, augmentation. No visualized echogenic material on gould scale. No def ects on color images. ANY DEEP VENOUS INSUFFICIENCY: Not evaluated. ANY EVIDENCE OF POPLITEAL CYST: No. OTHER: No other significant finding. CONTRALATERAL COMMON FEMORAL VEIN AND SAPHENOFEMORAL JUNCTION: Normal phasicity, compression and augmentation. No visualized echogenic material on gould scale. No de fects on color images. IMPRESSION: NO EVIDENCE DVT OR SVT IN THE LEFT LEG. TECHNICAL DOCUMENTATION: JOB ID: [id number] 2010 [employer]- All Rights Reserved Reading location - IP/workstation name: [email or web address]
== END ==
LOC: SP 10:25
PROVIDERS: ATTEND Obstetrics & Gynecology
DX: M79.605 Pain in left leg (principal)
CPT/HCPCS: 93971